=== PATIENT | male | born 1990 | race Caucasian/White ===

== ENCOUNTER 2017-02-16 18:57 | Emergency (ER) | payer MEDICAID, OTHER ==
[~2017-02-16] VITALS: Ht 172.7 cm; Wt 98.5 kg
[2017-02-16 19:18] VITALS: Ht 172.7 cm; Wt 98.5 kg
[2017-02-16] MEDS ORDERED: ONDANSETRON (ODT) 4 MG TAB ODT STA (19:51)
[2017-02-16] MEDS ORDERED: HYDROCODONE/APAP (10/325) TAB PO ONE (20:00)
[2017-02-16] MEDS ORDERED: HYDR-902 PO (20:03)
[2017-02-16] MEDS ORDERED: IBUP-1542 PO (20:03)
--- NOTE | 2017-02-16 20:42 | ERD ---
ER Documentation Chief Complaint Date/Time DATE: 02/16/17 TIME: 20:39 Chief Complaint right middle finger injury, cabinet fell on his finger HPI Patient is a 18-year-old male with no medical problems who presents with a finger injury. The patient says that furniture fell onto his finger at 4 PM. It was the right third finger. He is right-handed. He tried Tylenol for pain. There is blood under his nail and he feels like there is pressure. He does not currently have a primary doctor. ROS All systems reviewed and are negative except as per history of present illness. Medications Home Meds Active Scripts Hydrocodone/Acetaminophen (Andale 10-325 Tablet) 1 Each Tablet, 1 TAB PO Q6H Y for PAIN, #7 TAB Prov:SHANKAR BRITTON MD 02/16/17 Ibuprofen* (Motrin*) 600 Mg Tab, 600 MG PO Q8, #30 TAB Prov:SHANKAR BRITTON MD 02/16/17 Allergies Allergies: Coded Allergies: No Known Allergy (Unverified , 02/16/17) PMhx/Soc Medical and Surgical Hx: pt denies Medical Hx, pt denies Surgical Hx Hx Alcohol Use: No Hx Substance Use: No Hx Tobacco Use: No Smoking Status: Never smoker FmHx Family History: No diabetes Physical Exam Vitals Vital Signs Date Time Temp Pulse Resp B/P Pulse Ox O2 Delivery O2 Flow Rate FiO2 02/16/17 19:18 97.6 71 20 148/87 98 Physical Exam Const: No acute distress Head: Atraumatic Eyes: Normal Conjunctiva ENT: Normal External Ears, Nose and Mouth. Neck: Full range of motion..~ No meningismus. Resp: Clear to auscultation bilaterally Cardio: Regular rate and rhythm, no murmurs Abd: Soft, non tender, non distended. Normal bowel sounds Skin: Subungual hematoma over more than 50% of the right third digit Back: No midline or flank tenderness Ext: Swelling to the right third finger with bruising noted and subungual hematoma Neur: Awake and alert Psych: Normal Mood and Affect Results 24 hrs Current Medications Medications (Trade) Dose Ordered Sig/Mila Route PRN Reason Start Time Stop Time Status Last Admin Dose Admin Acetaminophen/ Hydrocodone Bitart (Andale (10/325)) 1 tab ONCE ONCE PO 02/16/17 20:00 02/16/17 20:01 DC 02/16/17 19:57 Ondansetron HCl (Zofran Odt) 4 mg ONCE STAT ODT 02/16/17 19:51 02/16/17 19:53 DC 02/16/17 19:57 Procedures/MDM X-ray Hand 3V interpreted by me: Scaphoid: Normal Bones: Distal third finger fracture Joints: No dislocation Foreign body: None Splint Note Type: Metal splint Location: Right third finger Indication: Finger fracture Splint Assessment: Neurovascularly intact post splint placement with good fit. Subungal Incision and Drainage with irrigation by me: Location: Right third finger Anesthesia: None required Technique: Hot cautery trepanation Complications: none 48 hour wound check. Scar minimization instructions given. Patient has a closed fracture of the right third finger. The patient also had a subungual hematoma which was trephinated. The patient will need follow-up with a bone doctor within 48-72 hours for reevaluation. The patient was placed in a metal splint. The patient will be given ibuprofen and Andale for pain. I do not believe the patient requires antibiotics at this time this is a closed fracture. The patient can return sooner for any worsening symptoms. Departure Diagnosis: Primary Impression: Finger fracture Encounter type: initial encounter Finger: middle finger Fracture type: closed Phalanx: distal Fracture alignment: nondisplaced Laterality: right Qualified Code: S62.662A - Closed nondisplaced fracture of distal phalanx of right middle finger, initial encounter Additional Impressions: Finger injury Encounter type: initial encounter Laterality: right Qualified Code: S69.91XA - Finger injury, right, initial encounter Subungual hematoma Condition: Fair Patient Instructions: Subungual Hematoma Referrals: [facility] () Usted se oates hecho un examen mdico de control que le indica que no est en rex condicin que requiera tratamiento urgente en el Departamento de Emergencia. Un estudio ms profundo y el tratamiento de mccormack condicin pueden esperar sin ningn riesgo hasta que usted sea atendida/o en el consultorio de mccormack mdico o rex cl joshua. Es responsabilidad suya arreglar rex andre para el seguimiento del ramandeep. MANEJO DE CONDICIONES NO URGENTES EN EL FUTURO 1) Si usted tiene un mdico de atencin primaria: Usted debera llamar a mccormack mdico de atencin primaria antes de venir al departamento de emergencia. Despus de las horas de consultorio, mccormack doctor o mccormack asociado/a est disponible por telfono. El mdico o enfermero de stuart en el servicio telefnico puede asesorarle por evelyn medio para atender el problema, o ramandeep contrario se puede programar rex andre. 2) Si usted no tiene un mdico de atencin primaria: Llame al mdico o clnica de referencia que aparece abajo owen las horas de consultorio para hacer rex andre para que le vean. CLINICAS: [place] [id number] [phone] [facility] [facility] [phone] [facility] [facility] [phone] [facility] [place] [id number] [phone] [facility]. [place] [phone] [facility]. [phone] [address] Additional Instructions: Llame al doctor MAANA y leonor rex ANDRE PARA DENTRO DE 1-2 ARGUELLO.Dgale a la secretaria que nosotros le instruimos hacer esta andre.Avise o llame si mccormack condicin se empeora antes de la andre. Regresa aqui si peor o no mejor. SHANKAR BRITTON MD February 16, 2017 20:42
--- NOTE | 2017-02-16 21:47 | RADRPT ---
PROCEDURE: X-ray right hand CLINICAL INDICATION: Injury to the distal third digit of the right hand TECHNIQUE: 3 views right hand COMPARISON: None FINDINGS: Comminuted fracture of the mid-diaphysis to tuft of the third finger. IMPRESSION: Comminuted fracture of the mid-diaphysis to tuft of the third finger. RPTAT: [facility] Physician Rigoberto Date Time Electronically viewed and signed by Physician Rigoberto on 02/16/2017 21:47 RS/
== END 2017-02-16 20:41 | disposition home or self-care (01) ==
LOC: FTE 18:57
DX: S62.662A Nondisplaced fracture of distal phalanx of right middle finger, initial encounter for closed fracture (principal); S60.131A Contusion of right middle finger with damage to nail, initial encounter; W20.8XXA Other cause of strike by thrown, projected or falling object, initial encounter; Y92.9 Unspecified place or not applicable
CPT/HCPCS: 29130; 73130; 99283; Z7502; Z7610